=== PATIENT | female | born 1950 | race Caucasian/White ===

== ENCOUNTER 2017-09-01 11:47 | Emergency (ER) | payer MEDICARE, OTHER ==
[2017-09-01] MEDS: HYDROCODONE/APAP (5/325) TAB PO (15:39)
[2017-09-01] MEDS: KETOROLAC 15 MG INJ IM (15:40)
[2017-09-01 15:45] LABS: URINE BLOOD (Dip) POC Trace-intact (NEGATIVE); URINE GLUCOSE (Dip) POC Negative (NEGATIVE); URINE KETONES (Dip) POC Negative (NEGATIVE); URINE LEUKOCYTE EST (Dip) POC Trace (NEGATIVE); URINE NITRITE (Dip) POC Negative (NEGATIVE); URINE TOTAL PROTEIN POC Negative (NEGATIVE)
== END 2017-09-01 16:49 | disposition home or self-care (01) ==
LOC: FTE 11:47
DX: M17.9 Osteoarthritis of knee, unspecified (principal); E11.9 Type 2 diabetes mellitus without complications; I10 Essential (primary) hypertension; Z79.84 Long term (current) use of oral hypoglycemic drugs
CPT/HCPCS: 81003; 96372; 99284-25